=== PATIENT | male | born 1930 | race Caucasian/White ===

== ENCOUNTER 2016-08-06 07:45 | Outpatient (CLI) | payer MEDICARE, OTHER ==
[~2016-08-06] VITALS: Ht 182.9 cm; Wt 80.9 kg
[2016-08-06] MEDS ORDERED: NEXIUM40 MG PO (08:14)
[2016-08-06] MEDS ORDERED: VITAMIN D2000 UNIT PO (08:14)
[2016-08-06] MEDS ORDERED: LEVOXYL25 MCG PO (08:16)
[2016-08-06] MEDS ORDERED: LIPITOR40 MG PO (08:16)
[2016-08-06] MEDS ORDERED: FUROSEMIDE40 MG PO (08:16)
[2016-08-06] MEDS ORDERED: FLOMAX0.4 MG PO (08:17)
[2016-08-06] MEDS ORDERED: NIFEDIPINE ER90 MG PO (08:17)
[2016-08-06] MEDS ORDERED: CALCIUM 500 + D1 TAB PO (08:18)
[2016-08-06] MEDS ORDERED: BAYER CHEWABLE81 MG PO (08:18)
[2016-08-06] MEDS ORDERED: AMBIEN10 MG PO (08:19)
[2016-08-06] MEDS ORDERED: LEXAPRO10 MG PO (08:19)
[2016-08-06 08:30] VITALS: BP 152/65; Ht 182.9 cm; Wt 80.9 kg
[2016-08-06] MEDS ORDERED: LANTUS INSULIN10 ML SC (08:36)
[2016-08-06 08:37] LABS: BASOPHILS 0.5 % (0.0-2.0); EOSINOPHILS 5.3 % (0-7); HEMATOCRIT 34.2 % (42.0-54.0); HEMOGLOBIN 11.5 g/dL (13.5-17.5); IMMATURE GRANULOCYTES 0.3 % (0-5); LYMPHOCYTES 27.8 % (15-50); MCH 30.1 pg (26.0-34.0); MCHC 33.6 g/dL (31.0-37.0); MCV 89.5 fL (80.0-100.0); MEAN PLATELET VOLUME 9.8 fL (7.4-10.4); MONOCYTES 9.9 % (2-11); NEUTROPHILS 56.2 % (40-80); PLATELET COUNT 128 10x3/uL (130-400); RBC 3.82 10x6/uL (4.20-6.10); RDW 13.1 % (11.5-14.5)
[2016-08-06 08:44] LABS: ANION GAP 15.5 mmol/L (8-16); CALCIUM 8.6 mg/dL (8.5-10.1); CARBON DIOXIDE 24.3 mmol/L (21.0-32.0); CREATININE - SERUM 3.3 mg/dL (0.6-1.3); POTASSIUM - SERUM 4.8 mmol/L (3.5-5.1)
[2016-08-06 08:45] LABS: APTT 28.1 SECONDS (22.8-39.4); INR 0.97 (0.85-1.17); PROTIME 12.7 SECONDS (11.6-15.0)
== END 2016-08-06 13:10 | disposition home or self-care (01) ==
LOC: D.OPS 07:45 → D.CT 08:00 → D.SP 08:00 → D.OPS 10:00 → D.CT 10:00 → D.OPS 13:10
PROVIDERS: General Practice
DX: D47.2 Monoclonal gammopathy (principal)

== ENCOUNTER 2016-08-28 07:23 | Outpatient (CLI) | payer MEDICARE, OTHER ==
[~2016-08-28] VITALS: Ht 182.9 cm; Wt 79.1 kg
[~2016-08-28 07:23] MED LIST: AMBIEN10 MG PO; BAYER CHEWABLE81 MG PO; CALCIUM 500 + D1 TAB PO; FLOMAX0.4 MG PO; FUROSEMIDE40 MG PO; LANTUS INSULIN10 ML SC; LEVOXYL25 MCG PO; LEXAPRO10 MG PO; LIPITOR40 MG PO; NEXIUM40 MG PO; NIFEDIPINE ER90 MG PO; VITAMIN D2000 UNIT PO
[2016-08-28 08:37] VITALS: BP 142/63; BMI 24.4
[2016-08-28 09:05] LABS: BASOPHILS 0.6 % (0.0-2.0); EOSINOPHILS 3.8 % (0-7); HEMATOCRIT 32.8 % (42.0-54.0); HEMOGLOBIN 11.4 g/dL (13.5-17.5); LYMPHOCYTES 24.5 % (15-50); MCH 30.4 pg (26.0-34.0); MCHC 34.8 g/dL (31.0-37.0); MCV 87.5 fL (80.0-100.0); MEAN PLATELET VOLUME 10.3 fL (7.4-10.4); MONOCYTES 9.1 % (2-11); PLATELET COUNT 144 10x3/uL (130-400); RBC 3.75 10x6/uL (4.20-6.10); RDW 12.9 % (11.5-14.5); WBC 3.4 10x3/uL (4.8-10.8)
[2016-08-28 09:23] LABS: ANION GAP 19.9 mmol/L (8-16); CALCIUM 8.2 mg/dL (8.5-10.1); CARBON DIOXIDE 19.3 mmol/L (21.0-32.0); POTASSIUM - SERUM 4.2 mmol/L (3.5-5.1)
[2016-08-28 09:58] LABS: APTT 31.2 SECONDS (22.8-39.4); INR 1.01 (0.85-1.17); PROTIME 13.1 SECONDS (11.6-15.0)
--- NOTE | 2016-08-28 11:02 | NUR ---
TO ROOM 2510 PT TO BE ADMITED Irma PRAJAPATI RN HERE PUTTING IN ORDERS. , HS CALLED FOR A BED, PATIENT AWAKE AND ALERT X 3 AT THIS TIME VS TAKEN, DRESSING GELFOAM ON RIGHT SIDE NO BLEEDING NOTED AT THIS TIME.
--- NOTE | 2016-08-28 11:44 | NUR ---
TRANFERED TO ROOM 2120 REPORT CALLED TO WAGNER MONROE LPN
--- NOTE | 2016-08-28 12:22 | NUR ---
RECIEVED FROM OUT PATIENT. ALERT, ORIENTED. PT WITH NO COMPLAITS VOICED. DRSG TO RIGHT SIDE OF BACK, DRY AND CLEAN. NO BLEEDING NOTED. SR UP WITH CALL LIGHT IN REACH.
[2016-08-28 13:36] VITALS: BP 146/53; BMI 27.4
--- NOTE | 2016-08-28 13:47 | NUR ---
ASSESSMENT DONE INCISION TO R SIDE CDI. NO SIGNS OF BLEEDING. WILL CONTINUE TO MONITOR.
[2016-08-28 15:21] VITALS: BP 134/51
--- NOTE | 2016-08-28 16:25 | NUR ---
SCD'S ON BILATERAL LE
--- NOTE | 2016-08-28 18:55 | NUR ---
LYING QUIETLY. DENIES ANY NEEDS. DRSG TO BACK CLEAN AND DRY. SR UP WITH CALL LIGHT IN REACH. WILL MONITOR
[2016-08-28 21:33] VITALS: BP 137/81
[2016-08-29 01:06] VITALS: BP 124/55
[2016-08-29 05:24] VITALS: BP 135/53
[2016-08-29 05:39] LABS: BASOPHILS 0.4 % (0.0-2.0); EOSINOPHILS 2.4 % (0-7); HEMATOCRIT 29.7 % (42.0-54.0); HEMOGLOBIN 10.3 g/dL (13.5-17.5); LYMPHOCYTES 20.5 % (15-50); MCH 30.6 pg (26.0-34.0); MCHC 34.7 g/dL (31.0-37.0); MCV 88.1 fL (80.0-100.0); MEAN PLATELET VOLUME 9.9 fL (7.4-10.4); MONOCYTES 10.1 % (2-11); NEUTROPHILS 66.6 % (40-80); PLATELET COUNT 126 10x3/uL (130-400); RBC 3.37 10x6/uL (4.20-6.10); RDW 13.1 % (11.5-14.5)
[2016-08-29 05:56] LABS: ANION GAP 16.8 mmol/L (8-16); CALCIUM 8.1 mg/dL (8.5-10.1); CARBON DIOXIDE 19.2 mmol/L (21.0-32.0); CREATININE - SERUM 3.6 mg/dL (0.6-1.3)
[2016-08-29 06:03] LABS: APTT 29.8 SECONDS (22.8-39.4); INR 1.08 (0.85-1.17); PROTIME 13.8 SECONDS (11.6-15.0)
--- NOTE | 2016-08-29 07:08 | NUR ---
ASSESSMENT COMPLETED. NO TELEMERTY, DRSG TO RIGHT BACK CLEAN AND DRY.RIGHT FA IV., PATENT. NO NEEDS VOICED. SCDS NOT ON
--- NOTE | 2016-08-29 09:42 | NUR ---
LYING QUIETLY. DENIES ANY NEEDS. CALL LIGHT IN REACH WITH SR UP. WILL MONITOR
--- NOTE | 2016-08-29 09:54 | NUR ---
FLUID HUNG PRE OP FOR PROCEDURE
[2016-08-29 12:00] VITALS: BP 146/60
[2016-08-29 12:54] VITALS: Ht 182.9 cm; Wt 79.1 kg
--- NOTE | 2016-08-29 14:34 | NUR ---
TO SPECIALS PER BED
--- NOTE | 2016-08-29 15:46 | NUR ---
RECIEVED FROM SPECIALITY. DRSG TO ABD DRY AND INTACT. V/S SIGHNS STABLE. GIVEN TYLENOL FOR HEADACHE. . WILL MONITOR
[2016-08-29 15:52] VITALS: BP 147/76
[2016-08-29 16:00] VITALS: BP 147/61
--- NOTE | 2016-08-29 18:02 | NUR ---
LYING QUIETLY WITH EYES CLOSED. DRSG TO UPPER ABD CLEAN AND DRY. DENIES ANY NEEDS. V/S STABLE
--- NOTE | 2016-08-29 19:00 | NUR ---
RECEIVED REPORT AND ASSUMED PT CARE FROM DAY SHIFT NURSE @ THIS TIME.
--- NOTE | 2016-08-29 19:45 | NUR ---
RECEIVED A PHONE CALL FROM DR BANEGAS. REQUESTS CBC TO BE DONE NOW AND TO CALL RESULTS. CBC ORDER ENTERED STAT AND AWAITING RESULTS.
[2016-08-29 20:21] VITALS: BP 143/54
[2016-08-29 20:31] LABS: BASOPHILS 0.4 % (0.0-2.0); EOSINOPHILS 2.3 % (0-7); HEMATOCRIT 28.5 % (42.0-54.0); HEMOGLOBIN 9.7 g/dL (13.5-17.5); IMMATURE GRANULOCYTES 0.2 % (0-5); LYMPHOCYTES 21.9 % (15-50); MCH 30.3 pg (26.0-34.0); MCV 89.1 fL (80.0-100.0); MONOCYTES 11.5 % (2-11); NEUTROPHILS 63.7 % (40-80); PLATELET COUNT 118 10x3/uL (130-400); WBC 4.7 10x3/uL (4.8-10.8)
--- NOTE | 2016-08-29 20:49 | NUR ---
RESULTS CALLED TO DR BANEGAS. ORDER RECEIVED TO TYPE AND CROSSMATCH FOR 2 UNITS OF BLOOD AND TO TRANSFUSE 1 UNIT PRBC'S NOW. PREMED WITH TYLENOL 500 MG PO AND BENADRYL 25 MG PO. ALSO ORDERED FOR PTT/PT WITH INR.
[2016-08-29 21:27] LABS: APTT 32.5 SECONDS (22.8-39.4); INR 1.08 (0.85-1.17); PROTIME 13.9 SECONDS (11.6-15.0)
[2016-08-30 00:31] VITALS: BP 163/68
[2016-08-30 04:03] VITALS: BP 139/64
--- NOTE | 2016-08-30 05:04 | NUR ---
PT RECEIVED 1 UNIT PRBC'S, TRANSFUSION START TIME 2330, FINISH TIME 0230. DURING TRANSFUSION VSS, PT WAS AFEBRILE. PRE-MEDICATED WITH TYLENOL 500 MG AND BENADRYL 25 MG PO ORDERED BY [address] BANEGAS. BLOOD VERIFIED AT THE BEDSIDE BY NURSES X2. TRANSFUSION RECORD WITH VS PLACED IN CHART.
[2016-08-30 06:25] LABS: BASOPHILS 0.2 % (0.0-2.0); EOSINOPHILS 2.6 % (0-7); HEMATOCRIT 29.8 % (42.0-54.0); HEMOGLOBIN 10.6 g/dL (13.5-17.5); IMMATURE GRANULOCYTES 0.2 % (0-5); LYMPHOCYTES 17.4 % (15-50); MCH 31.3 pg (26.0-34.0); MCHC 35.6 g/dL (31.0-37.0); MCV 87.9 fL (80.0-100.0); MONOCYTES 8.2 % (2-11); NEUTROPHILS 71.4 % (40-80); PLATELET COUNT 110 10x3/uL (130-400); RBC 3.39 10x6/uL (4.20-6.10); RDW 13.1 % (11.5-14.5); WBC 4.7 10x3/uL (4.8-10.8)
[2016-08-30 08:00] VITALS: BP 141/60
--- NOTE | 2016-08-30 10:11 | NUR ---
UP SOB WITH CALL LIGHT IN REACH. NPO C/O PAIN NOTED. WILL CONT. PLAN OF CARE.
--- NOTE | 2016-08-30 12:14 | NUR ---
IV DCD. DC PLANS GIVEN. [facility]
== END 2016-08-30 12:15 | disposition home or self-care (01) ==
LOC: OBSVTIME → D.OPS 07:23 → D.RAD 10:00 → D.SP 10:00 → D.OPS 10:00 → D.RAD 11:00 → D.M2 11:25 → D.OPS 11:53 → D.M2 11:54 → D.OPS 11:54 → OBSVTIME 11:54 → D.OPS 08-30 12:15 → D.M2 08-30 12:15
PROVIDERS: General Practice; Internal Medicine Hematology & Oncology; Specialist
DX: E11.22 Type 2 diabetes mellitus with diabetic chronic kidney disease (principal); K86.9 Disease of pancreas, unspecified; E78.5 Hyperlipidemia, unspecified; K21.0 Gastro-esophageal reflux disease with esophagitis; N40.1 Benign prostatic hyperplasia with lower urinary tract symptoms